=== PATIENT | female | born 1960 ===

== ENCOUNTER 2018-01-18 14:43 | Emergency (ER) | payer OTHER ==
--- NOTE | 2018-01-18 16:29 | C.PDOC ---
History Of Present Illness 57 year old female presents to ED for evaluation of bilateral lower leg pain and swelling for the past 2 weeks. Pt admits to standing for a long time everyday as part of her job. Otherwise, denies chest pain, shortness of breath, skin changes, weakness, numbness, tingling sensation, fever, or chills. Time Seen by Provider: 01/18/18 15:33 Chief Complaint (Nursing): Lower Extremity Problem/Injury History Per: Patient History/Exam Limitations: no limitations Onset/Duration Of Symptoms: Days Current Symptoms Are (Timing): Still Present Recent travel outside of the [place]: No Additional History Per: Patient Past Medical History Reviewed: Historical Data, Nursing Documentation, Vital Signs Vital Signs: Last Vital Signs Temp 98.5 F 01/18/18 18:59 Pulse 92 H 01/18/18 18:59 Resp 17 01/18/18 18:59 BP 129/78 01/18/18 18:59 Pulse Ox 100 01/18/18 18:59 Family History: States: Unknown Family Hx - Social History Hx Alcohol Use: Yes Hx Substance Use: No Review Of Systems Except As Marked, All Systems Reviewed And Found Negative. Constitutional: Negative for: Fever, Chills Cardiovascular: Negative for: Chest Pain, Palpitations Respiratory: Negative for: Shortness of Breath Musculoskeletal: Positive for: Leg Pain (BLE pain and swelling) Skin: Negative for: Rash, Bruising Neurological: Negative for: Weakness, Numbness Physical Exam - Physical Exam Appears: Non-toxic, No Acute Distress Skin: Normal Color, Warm, Dry Head: Atraumatic, Normacephalic Eye(s): bilateral: Normal Inspection Oral Mucosa: Moist Neck: Normal ROM, Supple Cardiovascular: Rhythm Regular Respiratory: Normal Breath Sounds, No Rales, No Rhonchi, No Wheezing Extremity: Normal ROM, No Tenderness, Pedal Edema (pitting edema to bilateral lower extremities), No Calf Tenderness, Capillary Refill (less than 2 seconds), No Deformity, Swelling (lower legs) Extremity: Bilateral: Atraumatic, Normal Color And Temperature Pulses: Left Dorsalis Pedis: Normal, Right Dorsalis Pedis: Normal Neurological/Psych: Oriented x3, Normal Speech, Normal Motor, Normal Sensation ED Course And Treatment - Laboratory Results Result Diagrams: 01/18/18 17:09 01/18/18 17:09 O2 Sat by Pulse Oximetry: 98 (on RA) Pulse Ox Interpretation: Normal - Other Rad CXR X-Ray: Viewed By Me, Read By Radiologist Interpretation: FINDINGS: LUNGS: Mild pulmonary venous congestion. No focal consolidation. Please note that chest x-ray has limited sensitivity for the detection of pulmonary masses. PLEURA: No significant pleural effusion identified. No definite pneumothorax . CARDIOVASCULAR: Heart size appears top normal. OSSEOUS STRUCTURES: No acute osseous abnormality identified. VISUALIZED UPPER ABDOMEN: Unremarkable. OTHER FINDINGS: None. IMPRESSION: Mild pulmonary venous congestion. Progress Note: Blood work ordered. Elevated DDimer, Lovenox SQ ordered. Patient was instrcuetd to return to ED tomorrow for LE duplex, r/o DVT. Medical Decision Making Medical Decision Making: Plan: Blood work Urinalysis CXR Disposition - Disposition Disposition: HOME/ ROUTINE Disposition Time: 18:37 Condition: STABLE Additional Instructions: Return to ED tomorrow morning for LE venous duplex. Return to ED immediately if patient feels worse. 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 - Scribe Statement The provider has reviewed the documentation as recorded by the Jacobibe Delfina Jasso All medical record entries made by the Toya were at my direction and personally dictated by me. I have reviewed the chart and agree that the record accurately reflects my personal performance of the history, physical exam, medical decision making, and the department course for this patient. I have also personally directed, reviewed, and agree with the discharge instructions and disposition.
--- NOTE | 2018-01-18 17:02 | RAD ---
HISTORY: LE edema COMPARISON: None available. TECHNIQUE: Chest PA and lateral FINDINGS: LUNGS: Mild pulmonary venous congestion. No focal consolidation. Please note that chest x-ray has limited sensitivity for the detection of pulmonary masses. PLEURA: No significant pleural effusion identified. No definite pneumothorax . CARDIOVASCULAR: Heart size appears top normal. OSSEOUS STRUCTURES: No acute osseous abnormality identified. VISUALIZED UPPER ABDOMEN: Unremarkable. OTHER FINDINGS: None. IMPRESSION: Mild pulmonary venous congestion.
[2018-01-18 17:14] LABS: BASO % 0.8 % (0.0-2.0); EOS % 1.6 % (0.0-4.0); HEMOGLOBIN 10.4 g/dL (11.0-16.0); LYMPH # 1.2 K/uL (1.0-4.3); LYMPH % 40.4 % (20.0-40.0); MEAN CELL VOLUME 79.7 fL (81.0-99.0); MEAN CORPUSCULAR HEMOGLOBIN 26.1 pg (27.0-31.0); MEAN CORPUSCULAR HGB CONC 32.7 g/dL (33.0-37.0); MEAN PLATELET VOLUME 8.1 fL (7.2-11.7); MONO # 0.4 K/uL (0.0-0.8); MONO % 12.3 % (0.0-10.0); NEUT # 1.3 K/uL (1.8-7.0); NEUT % 44.9 % (50.0-75.0); NRBC % 0.1 % (0.0-2.0); RBC 3.99 Mil/uL (3.80-5.20); RED CELL DISTRIBUTION WIDTH 13.5 % (11.5-14.5)
[2018-01-18 17:28] LABS: SQUAMOUS EPITHIAL 5 /hpf (0-5); URINE BACTERIA OCC (<OCC); URINE BILIRUBIN NEGATIVE (NEGATIVE); URINE BLOOD NEGATIVE (NEGATIVE); URINE CLARITY Clear (Clear); URINE COLOR Yellow (YELLOW); URINE GLUCOSE (UA) NORMAL (Normal); URINE PROTEIN NEGATIVE (NEGATIVE); URINE UROBILINOGEN NORMAL mg/dL (0.2-1.0)
[2018-01-18 17:29] LABS: BLOOD UREA NITROGEN 15 mg/dL (7-17); CALCIUM 9.4 mg/dl (8.6-10.4); GFR NON-AFRICAN AMERICAN > 60
[2018-01-18 17:30] LABS: ALB/GLOB RATIO 1.2 (1.0-2.1); ALBUMIN 3.7 g/dL (3.5-5.0); ALT/SGPT 47 U/L (9-52); AST/SGOT 52 U/L (14-36); INR 1.1; PROTHROMBIN TIME 12.3 SECONDS (9.7-12.2); URINE LEUKOCYTE ESTERASE 1+ Leu/uL (Negative)
[2018-01-18] MEDS ORDERED: Enoxaparin 40 mg Syringe SC STA (17:54)
[2018-01-18] MEDS ORDERED: Enoxaparin 80 mg Syringe ONE (18:17)
[2018-01-18 19:01] VITALS: BP 129/78; PULSE 92; RESP 17; TEMP 98.5
[2018-01-19 14:53] VITALS: O2SAT 98
== END 2018-01-18 19:01 | disposition home or self-care (01) ==
LOC: C.ER 14:43
DX: R60.0 Localized edema (principal)
CPT/HCPCS: 71046; 80053; 81001; 85025; 85378; 85610; 85730; 96372; 99283; J1650

== ENCOUNTER 2018-01-19 08:06 | Emergency (ER) | payer OTHER ==
--- NOTE | 2018-01-19 08:32 | C.PDOC ---
History Of Present Illness 57 yo female w/o significant PMHx come in for evaluation of B/L feet/ankles swelling gradually developed for past 2 weeks associated with intermittent calf pain. Pt admits, " standing a lot at work". Otherwise, pt denies fever, chills, headache, dizziness, CP, SOB, dyspnea, palpitation, cough, abd. pain, N/V, denies known trauma or injury, no hx of prolong recent immobilization. Pt is menopausal. Ambulate to Ed for evaluation, not in any apparent distress. Pt was seen in ED yesterday due to same complaints, blood work done, elevated D- Dimer, pt received Lovenox 80 mg SQ#1 and was advised to return to ED today for Duplex US B/L LEs. Pt admits, mild improvement n B/L feet swelling compare to yesterday. Time Seen by Provider: 01/19/18 08:26 Chief Complaint (Nursing): Lower Extremity Problem/Injury History Per: Patient, Family Past Medical History Reviewed: Historical Data, Nursing Documentation, Vital Signs Vital Signs: Last Vital Signs Temp 98.7 F 01/19/18 08:20 Pulse 91 H 01/19/18 08:20 Resp 18 01/19/18 09:57 BP 147/63 01/19/18 08:20 Pulse Ox 99 01/19/18 09:48 - Medical History PMH: No Chronic Diseases Family History: States: Unknown Family Hx - Social History Hx Alcohol Use: Yes Hx Substance Use: No Review Of Systems Except As Marked, All Systems Reviewed And Found Negative. Constitutional: Negative for: Fever, Chills Eyes: Negative for: Vision Change ENT: Negative for: Throat Pain Cardiovascular: Positive for: Edema. Negative for: Chest Pain, Palpitations, Light Headedness Respiratory: Negative for: Cough, Shortness of Breath Gastrointestinal: Negative for: Nausea, Vomiting, Abdominal Pain Musculoskeletal: Negative for: Neck Pain, Shoulder Pain, Back Pain Skin: Negative for: Rash, Bruising Neurological: Negative for: Weakness, Numbness, Altered Mental Status, Headache , Dizziness Physical Exam - Physical Exam Appears: Well, Non-toxic, No Acute Distress Skin: Normal Color, Warm, Dry, No Rash Head: Normacephalic Eye(s): bilateral: PERRL Nose: No Flaring, No Discharge Oral Mucosa: Moist Throat: No Erythema Neck: Trachea Midline, Supple Cardiovascular: Rhythm Regular, No Murmur, No JVD, Other ((-) carotid bruits) Respiratory: No Decreased Breath Sounds, No Accessory Muscle Use, No Stridor, No Wheezing Gastrointestinal/Abdominal: Soft, No Tenderness, No Distention, No Guarding Back: No CVA Tenderness Extremity: Normal ROM, No Deformity, No Swelling Neurological/Psych: Oriented x3, Normal Speech, Normal Motor, Normal Sensation, Normal Reflexes ED Course And Treatment O2 Sat by Pulse Oximetry: 99 Pulse Ox Interpretation: Normal - CT Scan/US Doppler US B/L lEs Other Rad Studies (CT/US): Read By Radiologist CT/US Interpretation: prelim (-) for DVT of B/L lEs. Progress Note: On re-eval, pt is afebrile, hemodynamicaly stable. Non-toxic. PulseOx 99% RA. Neck: SUpple, (-) JVD, (-) carotid bruits B/L. Lungs: CTA B/L , BS equal B/L. CVS: (+)S1S2, reg, (-) murmur. Abd: benign, (-) guarding, (-) rebound. Neurologicaly intact. Doppler US of B/L LEs (-). resuts review from yesterday visits to ED. Case discussed with , pt has no CP, SOB, dyspnea, palpitation, cough, pt has clinical findings c/w mild B/L trace ankle edema, likely dependant ( prolong standing). Pt is siatble for discharge now with outpt f/u. Results review and discussed with patient, advised and ref. to F/u with PMD, Card in 2-3 days for re-eval. return to ED if any worsening or new changes. Pt understand, stable for d/c now. Disposition Counseled Patient/Family Regarding: Studies Performed, Diagnosis, Need For Followup - Disposition Referrals: [facility] [Outside] Disposition: HOME/ ROUTINE Disposition Time: 09:47 Condition: STABLE Additional Instructions: Elevate feet daily Follow up with PMD, Cardiology in 2-3 days for re-evaluation. Return to ED if any worsening or new changes. Instructions: Dependent Edema (DC) Forms: [employer]folio (Sami) Print Language: PASHTO - Clinical Impression Clinical Impression: Edema of both feet
[2018-01-19 08:41] VITALS: BP 147/63; PULSE 91; RESP 18; TEMP 98.7; O2SAT 99; BMI 27.3
--- NOTE | 2018-01-20 12:28 | VASCLAB ---
Date of service: 01/19/2018 PROCEDURE: Lower Extremity Venous Duplex Exam. HISTORY: calf pain, feet swelling PRIORS: None. TECHNIQUE: Bilateral common femoral, femoral, popliteal and posterior tibial, peroneal and great saphenous veins were evaluated. Flow was assessed with color Doppler, compressibility, assessment of phasic flow and augmentation response. Report prepared by Jimbo Bain, T FINDINGS: RIGHT: 1. Common Femoral Vein: 1.1. Compressibility - Fully compressible: Thrombus - None : Flow - Phasic: Augmentation -Normal: Reflux - . 2. Femoral Vein: 2.1. Compressibility - Fully compressible: Thrombus - None : Flow - Phasic: Augmentation -Normal: Reflux - . 3. Popliteal Vein: 3.1. Compressibility - Fully compressible: Thrombus - None : Flow - Phasic: Augmentation -Normal: Reflux - . 4. Posterior Tibial Vein: 4.1. Compressibility - Fully compressible: Thrombus - None: Flow - : Augmentation -: Reflux - . 5. Peroneal Vein: 5.1. Compressibility - Fully compressible: Thrombus - None: Flow - : Augmentation -: Reflux - . 6. Great Saphenous Vein: 6.1. Compressibility - Fully compressible: Thrombus - None: Flow - Phasic: Augmentation - : Reflux - . LEFT: 1. Common Femoral Vein: 1.1. Compressibility - Fully compressible: Thrombus - None: Flow - Phasic: Augmentation -Normal: Reflux - . 2. Femoral Vein: 2.1. Compressibility - Fully compressible: Thrombus - None: Flow - Phasic: Augmentation -Normal: Reflux - . 3. Popliteal Vein: 3.1. Compressibility - Fully compressible: Thrombus - None : Flow - Phasic: Augmentation -Normal: Reflux - None. 4. Posterior Tibial Vein: 4.1. Compressibility - Fully compressible: Thrombus - None: Flow - : Augmentation -: Reflux - . 5. Peroneal Vein: 5.1. Compressibility - Fully compressible: Thrombus - None: Flow - : Augmentation -: Reflux - . 6. Great Saphenous Vein: 6.1. Compressibility - Fully compressible: Thrombus - None: Flow - Phasic: Augmentation - : Reflux - . OTHER FINDINGS: Right: None significant. Left: None significant. IMPRESSION: Right: No evidence of deep or superficial vein thrombosis of the right lower extremity. Left: No evidence of deep or superficial vein thrombosis of the left lower extremity.
== END 2018-01-19 10:00 | disposition home or self-care (01) ==
LOC: C.ER 08:06
DX: R60.0 Localized edema (principal)